=== PATIENT | male | born 1985 | race Caucasian/White ===

== ENCOUNTER → 2020-07-23 10:06 | Outpatient (CLI) | payer OTHER, SELFPAY ==
--- NOTE | ~2020-07-23 | US_ITS ---
EXAMINATION: US abdomen complete DATE: 07/23/2020 10:41 INDICATION: Left-sided abdominal pain TECHNIQUE: Multiple grayscale and Doppler ultrasound images of the abdomen were obtained. COMPARISON: 05/28/2005 FINDINGS: The head, body, and tail of the pancreas are normal. The liver is normal with normal echoge nicity and echotexture. No surface nodularity. Normal hepatopetal flow in the main portal vein. The g allbladder is normal with no abnormal wall thickening, pericholecystic fluid or stones. The normal co mmon bile duct measures 3 mm. There was no sonographic Fisher sign. The visualized portions of the ao rta and inferior vena cava are normal. The right kidney measures 12.5 x 3.5 x 5.7 cm. The left kidney measures 12.9 x 4.6 x 4.5 cm. The kidn eys demonstrate normal parenchymal echogenicity. There is no hydronephrosis. The spleen is normal in appearance and measures 11.6 cm. IMPRESSION: 1. No sonographic correlate for the patient's symptoms. Reviewed, dictated and finalized at location B.
== END ==
PROVIDERS: PCP Family Medicine Adolescent Medicine; Visit Provider Physician Assistant
DX: R10.9 Unspecified abdominal pain (principal)
CPT/HCPCS: 76700

== ENCOUNTER 2020-07-24 08:00 | Outpatient (CLI) | payer OTHER, SELFPAY | END 2020-07-24 08:01 | LOC: ANHCOVIDVC 08:01 | PROVIDERS: PCP Family Medicine Adolescent Medicine | DX: Z23 Encounter for immunization (principal) | CPT/HCPCS: 0001A; 91300 ==

== ENCOUNTER 2020-08-14 08:03 | Outpatient (CLI) | payer OTHER, SELFPAY | END 2020-08-14 08:04 | disposition home or self-care (01) | LOC: ANHCOVIDVC 08:03 | PROVIDERS: PCP Family Medicine Adolescent Medicine | DX: Z23 Encounter for immunization (principal) | CPT/HCPCS: 0002A; 91300 ==

== ENCOUNTER → 2020-12-08 01:52 | Outpatient (CLI) | payer OTHER, SELFPAY ==
[2020-12-08 19:54] LABS: SARS-CoV-2 RNA PCR Positive
== END ==
PROVIDERS: PCP Family Medicine Adolescent Medicine; Visit Provider Family Medicine Adolescent Medicine
DX: U07.1 COVID-19 (principal)
CPT/HCPCS: C9803; U0003; U0005